=== PATIENT | male | born 1990 | race Caucasian/White ===

== ENCOUNTER 2019-02-14 14:33 | Outpatient (CLI) | payer OTHER | END 2019-02-14 14:34 | disposition home or self-care (01) | LOC: SC 14:33 | PROVIDERS: ATTEND Internal Medicine Pulmonary Disease | DX: R06.83 Snoring (principal); R06.81 Apnea, not elsewhere classified; G47.8 Other sleep disorders; G47.10 Hypersomnia, unspecified; R41.89 Other symptoms and signs involving cognitive functions and awareness; G25.81 Restless legs syndrome | CPT/HCPCS: 99203; 99212 ==

== ENCOUNTER 2019-03-03 20:44 | Outpatient (CLI) | payer OTHER | END 2019-03-03 20:45 | disposition home or self-care (01) | LOC: SC 20:44 | PROVIDERS: ATTEND Internal Medicine Pulmonary Disease | DX: G47.61 Periodic limb movement disorder (principal) | CPT/HCPCS: 95810 ==

== ENCOUNTER 2019-05-16 10:09 | Outpatient (CLI) | payer OTHER ==
--- NOTE | 2019-05-16 11:49 | CONSULTATION NOTE ---
Information from patient questionnaire entered by Carol Camara. I have reviewed and concur with the information entered by Carol Camara. This document represents the service I personally performed and the decisions made by me, Miki Peck MD, [facility]. - History of Present Illness HPI: Mr. Myrick returned for follow up of the sleep study he had on 03/03/19. The polysomnography showed that the patient had normal sleep efficiency. The sleep architecture was normal as well. Respiratory monitoring showed no significant sleep disordered breathing (AHI = 0.9) or hypoxemia (yulia oxygen saturation of 94%). The patient slept adequately in supine position (supine AHI = 3.8; non-supine = 0.00). Snore was light in intensity. There was mild periodic leg movement of sleep not associated with sleep fragmentation. Cardiac rhythm was normal sinus rhythm without significant arrhythmia. No abnormal behavior (parasomnia) observed during the night. The patient was informed of these findings. I explained to him that he has mild periodic leg movement of sleep that is consistent with his report of restless leg syndrome. Initial [place] Sleepiness Scale score: 8 Current [place] Sleepiness Scale score: 9 - Allergies/Medications none Allergies and home medications reviewed: Yes - Review of Systems Review of systems same as previous: Yes - Impression 1. Periodic leg movement of sleep, mild with restless leg syndrome. The patient is uncomfortable and would like to be treated. The cause of periodic leg mo vement of sleep is typically unknown. Few known causes are iron deficiency, renal failure, and selective serotonin reuptake inhibitors. Iron and ferritin levels are recommended in addition to the routine blood work. I will start him on low dose pramipexole. He was informed of the side effects which include drowsiness, dizziness, muscle weakness, visual disturbance, increased urination, nausea and dry mouth. - Plan 1. Prescription made for pramipexole 0.25 mg to be taken to 1 tab in the evening on as needed basis restless leg sensation. 2. Return for follow up in one month to assess his response. This visit is time-based and I spent 15 minutes with the patient and more than 50% of the time was spent counseling the patient.
== END 2019-05-16 10:10 | disposition home or self-care (01) ==
LOC: SC 10:09
PROVIDERS: ATTEND Internal Medicine Pulmonary Disease
DX: G47.61 Periodic limb movement disorder (principal)
CPT/HCPCS: 99212; 99213

== ENCOUNTER 2019-07-09 18:34 | Emergency (ER) | payer OTHER ==
--- NOTE | 2019-07-09 18:53 | ED Physician Documentation ---
PD HPI UPPER EXT INJURY - Stated complaint Stated Complaint: R HAND INJ - Chief complaint Chief Complaint: Ext Problem - History obtained from History obtained from: Patient - History of Present Illness Location: Right, Hand Where injury occurred: Home Timing - onset: Last night Timing - details: Abrupt onset Pain level max: 8 Pain level now: 5 Improved by: Rest, Ice, Immobilization Worsened by: Moving, Palpating Associated symptoms: Swelling. No: Weakness, Numbness, Tingling - Additonal information Additional information: Patient states that he punched a table last night. Continued pain and swelling today. He is right-handed. Worse with movement and better with rest Review of Systems Skin: denies: Rash Musculoskeletal: denies: Neck pain, Back pain Neurologic: denies: Head injury PD PAST MEDICAL HISTORY - Past Medical History Past Medical History: Yes Cardiovascular: None Respiratory: None Neuro: None Endocrine/Autoimmune: None GI: None : None HEENT: None Psych: None Musculoskeletal: None Derm: None - Past Surgical History Past Surgical History: No - Allergies Allergies/Adverse Reactions: Allergies Allergy/AdvReac Type Severity Reaction Status Date / Time No Known Drug Allergies Allergy Verified 07/09/19 18:43 - Social History Does the pt smoke?: Yes Smoking Status: Current every day smoker Does the pt drink ETOH?: Yes Does the pt have substance abuse?: No - Immunizations Immunizations are current?: Yes - POLST Patient has POLST: No PD ED PE NORMAL - Vitals Vital signs reviewed: Yes - General General: Alert and oriented X 3, No acute distress - HEENT HEENT: Moist mucous membranes - Derm Derm: Warm and dry - Extremities Extremities: Other (Tender palpation over the fourth and fifth metacarpals. No deformity. There is swelling over the dorsum of the hand. Neurovascularly intact. No tenderness over the wrist. No snuffbox tenderness.) - Neuro Neuro: Alert and oriented X 3 Results - Vitals Vitals: Vital Signs - 24 hr 07/09/19 07/09/19 18:41 19:39 Temperature 36.4 C L 36.6 C Heart Rate 74 69 Respiratory 19 16 Rate Blood Pressure 145/85 H 141/86 H O2 Saturation 100 99 Oxygen O2 Source Room air - Rads (name of study) Right hand x-ray Radiology: Prelim report reviewed, EMP read contemporaneously, See rad report (Oblique mildly displaced and angulated proximal fourth metacarpal fracture. Transverse mildly displaced and angulated distal fifth metacarpal fracture. No dislocation. Soft tissue swelling. ) Procedures - Splint (location) R hand Splint applied by: Physician, Tech Type of splint: Fiberglass, Short arm, Ulnar gutter Other: Patient tolerated well, No complications, Neurovascular intact, Sling provided PD MEDICAL DECISION MAKING - ED course Complexity details: reviewed results, re-evaluated patient, considered di fferential, d/w patient ED course: 28-year-old male presents to the emergency department with a right hand injury. Has fractures of the proximal fourth metacarpal and distal fifth metacarpal. Placed in a ulnar gutter splint. Given a sling as well. Declines any pain medication here or for home. Discussed the case with Dr. Krishna, orthopedics [place]. States that this will need operative repair. Neurovascularly intact. Patient counseled regarding signs and symptoms for which I believe and urgent re-evaluation would be necessary. Patient with good understanding of and agreement to plan and is comfortable going home at this time This document was made in part using voice recognition software. While efforts are made to proofread this document, sound alike and grammatical errors may occur. Departure - Departure Disposition: 01 Home, Self Care Clinical Impression: Fracture of fourth metacarpal bone of right hand Qualifiers: Encounter type: initial encounter Fracture type: closed Metacarpal location: base Fracture alignment: displaced Qualified Code(s): S62.314A - Displaced fracture of base of fourth metacarpal bone, right hand, initial encounter for closed fracture Fracture of fifth metacarpal bone of right hand Qualifiers: Encounter type: initial encounter Fracture type: closed Metacarpal location: neck Fracture alignment: displaced Qualified Code(s): S62.336A - Displaced fracture of neck of fifth metacarpal bone, right hand, initial encounter for closed fracture Condition: Good Instructions: ED Fx Hand Closed Follow-Up: Donny López MD [Primary Care Provider] - Within 3 Days Comments: Stay in the splint until released by orthopedics. These fractures will require surgery. I spoke with Dr. Krishna from orthopedics [facility]. [place] Return if you worsen Discharge Date/Time: 07/09/19 19:53
--- NOTE | 2019-07-09 19:10 | XRAY Report ---
Reason: hand vs table last night Procedure Date: 07/09/2019 Accession Number: [id number] / [id number] Procedure: XR - Hand 3 View RT CPT Code: FULL RESULT: EXAM: RIGHT HAND RADIOGRAPHY EXAM DATE: 07/09/2019 07:01 PM. CLINICAL HISTORY: Pain and swelling COMPARISON: None. TECHNIQUE: 3 views. FINDINGS: Bones: Oblique mildly displaced and angulated fracture at the proximal aspect of the fourth metacarpal. Transverse mildly displaced and angulated fracture of the distal fifth metacarpal. No articular extension at either site. Joints: No dislocation. Soft Tissues: Soft tissue swelling. IMPRESSION: Oblique mildly displaced and angulated proximal fourth metacarpal fracture. Transverse mildly displaced and angulated distal fifth metacarpal fracture. No dislocation. Soft tissue swelling. RADIA
[2019-07-09 19:40] VITALS: BP 141/86
== END 2019-07-09 19:53 | disposition home or self-care (01) ==
LOC: ED 18:34
DX: S62.314A Displaced fracture of base of fourth metacarpal bone, right hand, initial encounter for closed fracture (principal); S62.336A Displaced fracture of neck of fifth metacarpal bone, right hand, initial encounter for closed fracture; W22.8XXA Striking against or struck by other objects, initial encounter; Y92.009 Unspecified place in unspecified non-institutional (private) residence as the place of occurrence of the external cause; F17.200 Nicotine dependence, unspecified, uncomplicated
CPT/HCPCS: 29125; 99283

== ENCOUNTER 2019-07-11 10:12 | Outpatient (CLI) | payer OTHER ==
--- NOTE | 2019-07-11 10:39 | SLEEP CARE CONSULTATION ---
Information from patient questionnaire entered by Allison Gomez. I have reviewed and concur with the information entered by Allison Gomez. This document represents the service I personally performed and the decisions made by me, Miki Peck MD, [facility]. History of Present Illness Previous diagnosis: Other (PERIODIC LEG MOVEMENT) AHI: 0.9 Reason for CPAP/BiPAP follow up: other (2 MONTH FOLLOW UP MEDICATION) Prior sleep studies: Yes Year and Where: 2018 [facility] additional information: HPI: Mr. Myrick returned for follow up of treatment of restless leg syndrome. On his last visit 2 months ago, he was started on pramipexole 0.25 mg to be taken to 1 tab in the evening on as needed basis. He tells me that tablet did not work and he increased to 1 tab which works well. Occasionally if he does not fall asleep quick enough, the restless leg will occur during the night. He denies having side effects, such as drowsiness, dizziness, muscle weakness, visual disturbance, increased urination, nausea and dry mouth. Subjective Initial [place] Sleepiness Scale score: 8 Current [place] Sleepiness Scale score: 9 Allergies and Home Medications Drug allergies reviewed: Yes Home medication list reviewed: Yes Physical Exam Weight (kg): 162 lb Impression and Plan IMPRESSION: 1. Periodic leg movement of sleep, mild with restless leg syndrome. The patient responds well to the low dose pramipexole and has no side effects. He was instructed to take an addition tablet if the restless leg occurs during the night. I will refill the medication for him. In the future, his primary care provider may continue the prescription. PLAN: 1. Prescription made for pramipexole 0.25 mg to be taken 1 to 1 tab in the evening/night on as needed basis restless leg sensation; 45 tablets prescribed with 4 refills. Further refills can be from his primary care provider. 4. Return for follow up with the sleep clinic on as needed basis. I spent 100% of this 15 minute visit face to face with the patient with greater than 50% of this was spent time counseling the patient and coordination of care.
== END 2019-07-11 10:13 | disposition home or self-care (01) ==
LOC: SC 10:12
PROVIDERS: ATTEND Internal Medicine Pulmonary Disease
DX: G47.61 Periodic limb movement disorder (principal); G25.81 Restless legs syndrome
CPT/HCPCS: 99212; 99213

== ENCOUNTER 2019-07-14 10:29 | Day surgery (SDC) | payer OTHER ==
[2019-07-14] MEDS ORDERED: PROPOFOL 200 MG/20 ML VIAL IVP ONE (10:30)
[2019-07-14] MEDS ORDERED: DEXAMETHASONE 4 MG/ML VIAL IVP ONE (10:30)
[2019-07-14] MEDS ORDERED: KETOROLAC 30 MG/ML VIAL IVP ONE (10:30)
[2019-07-14] MEDS ORDERED: MIDAZOLAM 2 MG/2 ML VIAL IVP ONE (10:30)
[2019-07-14] MEDS ORDERED: CEFAZOLIN SODIUM IN 0.9 % NACL 2 GM/100 ML BAG IV ONE (10:45)
[2019-07-14] MEDS ORDERED: LACTATED RINGERS 1,000 ML IV ONE (10:55)
--- NOTE | 2019-07-14 11:27 | ANESTHESIA ---
Pre-Anesthesia VS, & Labs - Diagnosis Right 4th/5th metacarpal repair - Procedure ORIF right 4th/5th metacarpals Vital Signs: Temp Pulse Resp BP Pulse Ox 36.8 C 68 18 136/95 H 99 07/14/19 10:38 07/14/19 10:38 07/14/19 10:38 07/14/19 10:38 07/14/19 10:38 Height 5 ft 8 in Weight (kg) 76.6 kg Body Mass Index 24.6 - NPO Other (0830 water) - Lab Results Lab results reviewed: No Home Medications and Allergies Home Medications: Ambulatory Orders Acetaminophen 650 mg PO Q8HR 07/13/19 Ibuprofen [Ibu] 800 mg PO Q8HR 07/13/19 Ondansetron [Zuplenz] 4 mg PO Q8HR 07/13/19 Pramipexole [Mirapex] 0.25 mg PO 07/13/19 oxyCODONE [Roxicodone] 5 mg PO Q4-6H 07/13/19 Acetaminophen 650 mg PO Q8HR 07/13/19 Ibuprofen [Ibu] 800 mg PO Q8HR 07/13/19 Ondansetron [Zuplenz] 4 mg PO Q8HR 07/13/19 Pramipexole [Mirapex] 0.25 mg PO 07/13/19 oxyCODONE [Roxicodone] 5 mg PO Q4-6H 07/13/19 Allergies/Adverse Reactions: Allergies Allergy/AdvReac Type Severity Reaction Status Date / Time No Known Drug Allergies Allergy Verified 07/13/19 16:01 Anes History & Medical History - Anesthetic History Anesthesia Complications: reports: No previous complications Family history of Anesthesia Complications: Denies Family history of Malignant Hyperthermia: Denies - Medical History Cardiovascular: reports: None Pulmonary: reports: None Gastrointestinal: reports: None Urinary: reports: None Neuro: reports: None Musculoskeletal: reports: None Endocrine/Autoimmune: reports: None Blood Disorders: reports: None Skin: reports: None Smoking Status: Current every day smoker Psychosocial: reports: No issues indicated Exam General: Alert Dental: WNL Mouth Opening: Greater than 4 Fingerbreadths Neck Mobility: Normal Mallampati classification: I Thyromental Distance: greater than 6 cm Respiratory: Lungs clear Cardiovascular: Regular rate Mental/Cognitive Status: Alert/Oriented X3, Normal for patient Cognitive Status: Within normal limits Plan Anesthesia Type: General Consent for Procedure(s) Verified and Reviewed: Yes Code Status: Attempt Resuscitation ASA classification: 2-Mild systemic disease Is this case an emergency?: No
[2019-07-14] MEDS ORDERED: BUPIVACAINE 0.25% PF 10 ML VIAL ONE (12:08)
[2019-07-14] MEDS ORDERED: BUPIVACAINE 0.25% PF 10 ML VIAL SUBQ ONE (13:07)
[2019-07-14] MEDS: HYDROmorphone 0.5 MG/0.5 ML SYRINGE ONE ×3 (14:30→14:45)
[2019-07-14] MEDS ORDERED: ONDANSETRON 4 MG/2 ML VIAL IVP PRN (14:43)
[2019-07-14] MEDS ORDERED: oxyCODONE 5 MG TABLET PO PRN (14:43)
[2019-07-14] MEDS ORDERED: HYDROmorphone 0.5 MG/0.5 ML SYRINGE ONE (14:50)
[2019-07-14] MEDS: fentaNYL 100 MCG/2 ML VIAL ONE ×2 (14:50→14:56)
--- NOTE | 2019-07-14 15:04 | OPERATIVE REPORT ---
Operative Report - General Procedure Date: 07/14/19 Planned Procedure: Right fourth and fifth metacarpal fracture closed reduction and percutaneous pinning versus open reduction and internal fixation Pre-Op Diagnosis: Right fifth metacarpal neck & fourth metacarpal proximal Shaft fracture Procedure Performed: Right fourth and fifth metacarpal fracture closed reduction and percutaneous pinning Post Op Diagnosis: Right fifth metacarpal neck & fourth metacarpal proximal Shaft fracture - Procedure Note Primary Surgeon: MEAGAN OLIVER Secondary Surgeon: GIOVANNI CAMPOS Anesthesia Technique: General LMA Estimated Blood Loss (mL): 5 - Other Other Information/Narrative: Tourniquet Time: Not used Specimen(s) Information: None Complication(s): None Condition: Stable to recovery Indications for Surgery: The patient is a 28-year-old right hand dominant male who sustained injury to the right fourth and fifth metacarpals when he punched a table last Thursday, 08 July. He was seen in the emergency department the following day, radiographs were obtained, he was splinted, followed up with his primary care provider, and referred to orthopedics. Xrays demonstrated an angulated and displaced 5th metacarpal neck fracture and a displaced and angulated proximal oblique fourth metacarpal shaft fracture. CT scan confirmed that the fourth and fifth CMC joints were not dislocated. Based on the presence of multiple metacarpal fractures, displacement, and angulation the patient was counseled on treatment options to include attempted closed reduction and casting versus closed reduction and percutaneous pinning vs open reduction and internal fi xation. Based on the fracture pattern, and multiple fractures, I felt that would be difficult to hold/maintain a reduction via closed means alone. This was communicated to the patient. Risks of surgery were discussed to include bleeding, infection, postoperative stiffness, implant complications, pin tract infections, loss of reduction, need for further procedures procedures, damage to nerves, vessels, tendons, ligaments, bone and cartilage and anesthesia complications to include medication side effects and allergic reactions and even . After discussion, he wished to proceed. Findings: Displaced and angulated fourth and fifth metacarpal fractures as above, they were amenable to closed reduction. Descriptions of Procedure: The patient was met in the Preoperative Holding Area, at which time preoperative paperwork was confirmed. The right hand was signed. The patient was then brought to Main Operating Room, placed supine on the Operating Room table, at which time pre procedure timeout was conducted to confirm correct patient, correct extremity and correct procedure and also to confirm presence and sterility of all required equipment and to confirm that antibiotics were being administered in the form of 2g of intravenous Ancef. After this was confirmed, general anesthesia was induced. The operative extremity was then prepped and draped over a hand table in the normal sterile fashion after a well-padded tourniquet was placed on the proximal arm. A final timeout was conducted to confirm the correct patient, correct extremity and correct procedure and to confirm that antibiotics had been administered within 30 minutes of incision time. Following timeout, longitudinal traction was pulled through the fourth and fifth digits, with appropriate volar directed dorsal pressure which helped the fourth metacarpal shaft. Mini C-arm fluoroscopy was used to verify reduction, and a dorsal to volar/ulnar to radial 0.045 inch K wire was driven from the distal shaft fragment into the proximal base for provisional fixation. Position was again confirmed on fluoroscopy, and then transverse pins from the fifth metacarpal into the fourth metacarpal were placed under fluoroscopic guidance. One pin was placed placed proximally near the metacarpal bases, 2 pins were placed between the metacarpal shafts between the level of the fourth metacarpal fracture and the fifth metacarpal fracture. Maintenance of reduction was confirmed on fluoroscopy. At this point attention was turned to the fifth metacarpal neck fracture, which was reduced using a combination of manual tract ion and dorsally directed pressure to align the fracture. Once the fracture was appropriately reduced to additional transverse pins were passed from the fifth metacarpal to the fourth metacarpal to stabilize the distal fragment. Fluoroscopy was used to confirm reduction, and then once satisfied with reduction the pins were bent and cut at the skin. Final mini C-arm imaging was taken, Perla balls were placed on the pins. 10 mL of 0.25% Marcaine plain was injected into the fourth- fifth metacarpal interspace, at the base of the fourth metacarpal, along the ulnar border of the hyperthenar eminence, and at the fifth metacarpal neck. Xeroform was placed around the pins, and then a dressing consisting of sterile 4 x 4 gauze, sterile web roll, and a volar and dorsal plaster splint was placed to the fingertips, and 30 degrees of wrist extension and approximately 70 degrees of MP flexion. It was overwrapped with webril followed by a gently compressive Francesco wrap. The patient was then awakened from general anesthesia without complication, brought to the Post Anesthesia Care for further recovery. Postoperative Plan: 1. The patient will be discharged from the Same Day Surgery Unit when discharge criteria are met. 2. The patient will remain in a splint until follow-up, followed by conversion to a cast. I expect pin removal in clinic in approximately 4 weeks based on fracture healing/callus formation. 3. Expect return to full duty in 12-16 weeks, and he was counseled that he may have stiffness up to postoperatively and require focused hand therapy to improve motion 4. Discharge precautions were provided in both verbal and written form to the patient
[2019-07-14 15:29] VITALS: BP 128/79
== END 2019-07-14 10:30 | disposition home or self-care (01) ==
LOC: SDS 10:29
PROVIDERS: ATTEND Orthopaedic Surgery
PROC: 0PSP34Z Reposition Right Metacarpal with Internal Fixation Device, Percutaneous Approach (ICD-10-PCS; 2019-07-14)
PROC: 0PSP34Z Reposition Right Metacarpal with Internal Fixation Device, Percutaneous Approach (ICD-10-PCS; principal; 2019-07-14 11:45)
DX: S62.314A Displaced fracture of base of fourth metacarpal bone, right hand, initial encounter for closed fracture (principal); S62.336A Displaced fracture of neck of fifth metacarpal bone, right hand, initial encounter for closed fracture; F17.210 Nicotine dependence, cigarettes, uncomplicated
CPT/HCPCS: 26608; A9270; C1713; J0690; J1170; J7120

== ENCOUNTER 2020-06-27 09:57 | Emergency (ER) | payer OTHER ==
--- NOTE | 2020-06-27 10:03 | ED Physician Documentation ---
PD HPI UPPER EXT INJURY - Stated complaint Stated Complaint: RT HAND INJ - History obtained from History obtained from: Patient (He has a history of ORIF of metacarpals in the past. No hardware now. Punched a table early this morning as he was upset. Declines pain medication on initial evaluation. Complains of right hand pain.) Review of Systems Constitutional: reports: Reviewed and negative Throat: reports: Reviewed and negative Cardiac: reports: Reviewed and negative Respiratory: reports: Reviewed and negative PD PAST MEDICAL HISTORY - Past Medical History Cardiovascular: None Respiratory: None Neuro: None Endocrine/Autoimmune: None GI: None : None HEENT: None Psych: None Musculoskeletal: None Derm: None - Past Surgical History Past Surgical History: No - Present Medications Home Medications: Ambulatory Orders Medication Instructions Recorded Confirmed Acetaminophen 650 mg PO Q8HR 07/13/19 07/13/19 Ibuprofen [Ibu] 800 mg PO Q8HR 07/13/19 07/13/19 Ondansetron [Zuplenz] 4 mg PO Q8HR 07/13/19 07/13/19 Pramipexole [Mirapex] 0.25 mg PO 07/13/19 oxyCODONE [Roxicodone] 5 mg PO Q4-6H 07/13/19 07/13/19 - Allergies Allergies/Adverse Reactions: Allergies Allergy/AdvReac Type Severity Reaction Status Date / Time No Known Drug Allergies Allergy Verified 06/27/20 10:26 - Social History Does the pt smoke?: Yes Smoking Status: Current every day smoker Does the pt drink ETOH?: Yes Does the pt have substance abuse?: No - Immunizations Immunizations are current?: Yes - POLST Patient has POLST: No PD ED PE NORMAL - Vitals Vital signs reviewed: Yes - General General: Alert and oriented X 3, No acute distress - Extremities Extremities: Other (Swelling and deformity over the fourth and fifth metacarpals dorsally, slight rotational deformity to the right fifth finger. No obvious loss of saccades but cannot make a fist.) - Neuro Neuro: Alert and oriented X 3 - Psych Psych: Normal mood, Normal affect Results - Vitals Vitals: Vital Signs - 24 hr 06/27/20 10:00 Temperature 37.4 C Heart Rate 98 Respiratory 16 Rate Blood Pressure 161/98 H O2 Saturation 100 Oxygen O2 Source Room air - Rads (name of study) R hand XR Radiology: EMP read contemporaneously (Fractures of the fourth and fifth distal metacarpals with some angulation of the fifth.) Procedures - General procedure General procedure: Hematoma block was done with 1% buffered lidocaine and then reduced with visual reduction of the deformity. Splinted by the tech. - Splint (location) RUE Splint applied by: Tech Type of splint: Fiberglass, Short arm, Ulnar gutter Other: Patient tolerated well, No complications, Neurovascular intact Departure - Departure Disposition: 01 Home, Self Care Clinical Impression: Fracture of fifth metacarpal bone of right hand Qualifiers: Encounter type: initial encounter Fracture type: closed Metacarpal location: neck Fracture alignment: displaced Qualified Code(s): S62.336A - Displaced fracture of neck of fifth metacarpal bone, right hand, initial encounter for closed fracture Fracture of fourth metacarpal bone of right hand Qualifiers: Encounter type: initial encounter Fracture type: closed Metacarpal location: neck Fracture alignment: nondisplaced Qualified Code(s): S62.364A - Nondisplaced fracture of neck of fourth metacarpal bone, right hand, initial encounter for closed fracture Instructions: ED Fx [place] Comments[place]. Take a copy of the x-ray with you. Return for new or worsening symptoms. Tylenol as needed for pain.
[2020-06-27] MEDS ORDERED: LIDOCAINE 1%-EPI 1:100000 20 ML MDV SUBQ STA (10:21)
--- NOTE | 2020-06-27 10:24 | XRAY Report ---
PROCEDURE: Hand 3 View RT INDICATIONS: hand inj TECHNIQUE: 3 views of the hand(s) acquired. COMPARISON: 07/09/2019 FINDINGS: Bones: There is a mildly displaced fracture in the fifth metacarpal shaft distally with associated m ild radial and volar sided angulation. There is also a minimally displaced fracture in the distal fou rth metacarpal shaft with minimal volar angulation. No dislocations. Soft tissues: No suspicious soft tissue calcifications. IMPRESSION: 1. Fractures of the fourth and fifth metacarpals as described. Reviewed by: Isaías Alexander MD on 06/27/2020 10:22 AM PDT Approved by: Isaías Alexander MD on 06/27/2020 10:22 AM PDT Station ID: [id number]
[2020-06-27 10:58] VITALS: BP 140/88
== END 2020-06-27 10:58 | disposition home or self-care (01) ==
LOC: ED 09:57
DX: S62.324A Displaced fracture of shaft of fourth metacarpal bone, right hand, initial encounter for closed fracture (principal); S62.326A Displaced fracture of shaft of fifth metacarpal bone, right hand, initial encounter for closed fracture; W22.03XA Walked into furniture, initial encounter; F17.200 Nicotine dependence, unspecified, uncomplicated
CPT/HCPCS: 26605; 26755